=== PATIENT | male | born 1965 | race Caucasian/White ===

== ENCOUNTER 2017-02-12 19:33 | Emergency (ER) | payer SELFPAY ==
[~2017-02-12] VITALS: Ht 182.9 cm; Wt 92.0 kg
[~2017-02-12 19:33] MED LIST: BACT800T5 PO; CEPH500 PO
[2017-02-12 19:35] VITALS: BP 113/56; PULSE 78; RESP 15; TEMP 99.6; O2SAT 98
--- NOTE | 2017-02-12 20:09 | PD ---
Physical Exam Date Seen by Provider: Feb 12, 2017 Time Seen by Provider: 20:05 Narrative 51-year-old male presents to emergency department with five-day history of upper respiratory symptoms including sinus pressure, purulent nasal drainage, bilateral ear pain with blood from the ears. Patient denies dental involvement. Patient recently was released from the [facility] 5 months ago. He states he is currently homeless. He is had this issue in the past treated with IV antibiotics. Patient has been taking some ibuprofen without much improvement. Pain is currently 9/10. He has no known drug allergies. Patient states he recently contracted and was treated for hepatitis B and hepatitis C. Vital signs are stable. Patient is awaiting medical bed placement. Data Data Last Documented VS Vital Signs Date Time Temp Pulse Resp B/P (MAP) Pulse Ox O2 Delivery O2 Flow Rate FiO2 02/12/17 19:35 99.6 78 15 113/56 (75) 98 Room Air [facility] Medical Record Reviewed: Yes Supervised Visit with POP: Yes Condition: Stable Juan Carlos Bai Feb 12, 2017 20:09
[2017-02-12] MEDS ORDERED: SODIUM CHLOR 0.9% 1000 ML INJ 1,000 ML IV ONE (21:00)
[2017-02-12] MEDS ORDERED: KETOROLAC TROMETHAMINE 30 MG/ML (IVP) VIAL IV PUSH ONE (21:00)
--- NOTE | 2017-02-12 22:12 | PD ---
HPI Chief Complaint: ENT Complaint Time Seen by Provider: 20:48 Travel History International Travel<30 days: No Contact w/Intl Traveler<30days: No Traveled to known affect area: No History of Present Illness HPI Patient is a 51 year old male who comes in because he believes he has an abscess in his nose. He says he has a lot of pain and swelling just below his nose and a lot of drainage. He says he has been taking Ibuprofen, last took it 48 hrs ago, and this is not helping. He says he put Qtips in his ears and they started bleeding. He says he has felt like he has had a fever. He is currently homeless and was just released from residential a few weeks ago. [facility] Past Medical History Anxiety: Yes Depression: Yes Cardiovascular Problems: No Diminished Hearing: No Gastrointestinal Disorders: No Genitourinary: No Hepatitis: Yes Herniated Disk: Yes Musculoskeletal: Yes (BULGING DISCS IN BACK) Neurologic: No Psychiatric: No Reproductive: No Respiratory: No Integumentary: Yes (PREVIOUS MRSA INFECTIONS) Immunizations Current: No Past Surgical History Tonsillectomy: Yes Other Surgery: Yes (Left ankle, R and left thumb) Social History Alcohol Use: Yes (RARE) Tobacco Use: No Substance Use: Yes (COCCAINE USER, IV DRUG USER, METH RARELY) Allergies-Medications (Allergen,Severity, Reaction): Coded Allergies: No Known Allergies (Verified , 02/12/17) Reported Meds & Prescriptions Reported Meds & Active Scripts Active No Active Prescriptions or Reported Medications Review of Systems Except as stated in HPI: all other systems reviewed are Neg General / Constitutional: Positive: Fever, Chills Eyes: No: Blurred Vision HENT: Positive: Rhinorrhea, Congestion, Ear Discharge Cardiovascular: No: Chest Pain or Discomfort Respiratory: No: Shortness of Breath Gastrointestinal: No: Nausea, Vomiting Musculoskeletal: No: Myalgias, Edema Skin: No Rash, No Change in Pigmentation Neurologic: No: Weakness, Dizziness Physical Exam Narrative GENERAL: Awake and alert, in no acute distress. SKIN: Focused skin assessment warm/dry. HEAD: Atraumatic. Normocephalic. EYES: Pupils equal and round. No scleral icterus. EOMI ENT: No nasal bleeding or discharge. Mucous membranes pink and moist. Erythema around the nostrils, no defined abscess or area of fluctuance. No septal hematoma. Area of irritation and dried blood in the left ear canal. Both TMs without erythema, both intact. NECK: Trachea midline. No JVD. CARDIOVASCULAR: Regular rate and rhythm. No murmur appreciated. RESPIRATORY: No accessory muscle use. Clear to auscultation. Breath sounds equal bilaterally. MUSCULOSKELETAL: No obvious deformities. No clubbing. No cyanosis. No edema. NEUROLOGICAL: Awake and alert. No obvious cranial nerve deficits. Motor grossly within normal limits. Normal speech. PSYCHIATRIC: Appropriate mood and affect; insight and judgment normal. Data Data Last Documented VS Vital Signs Date Time Temp Pulse Resp B/P (MAP) Pulse Ox O2 Delivery O2 Flow Rate FiO2 02/12/17 22:45 16 02/12/17 19:35 99.6 78 113/56 (75) 98 Room Air Orders Orders Iv Access Insert/Monitor (02/12/17 20:56) Complete Blood Count With Diff (02/12/17 20:56) Comprehensive Metabolic Panel (02/12/17 20:56) Ct Facial Bones W Iv Contrast (02/12/17 ) Sodium Chlor 0.9% 1000 Ml Inj (Ns 1000 M (02/12/17 21:00) Ketorolac Inj (Toradol Inj) (02/12/17 21:00) Iohexol 350 Inj (Omnipaque 350 Inj) (02/12/17 22:37) Clindamycin Inj (Cleocin Inj) (02/12/17 23:30) Asp:No Reaction To [place]av/Vanc (Asp Crit (02/12/17 23:30) Asp: Does Not Meet Inpt Admit (Asp Crit: (02/12/17 23:30) Asp: Iv Antibiotics Admit Only (Asp Crit (02/12/17 23:30) Asp: Location Of Dalbav Admin (Asp Crit: (02/12/17 23:30) [facility] Information ([facility] (02/12/17 23:30) Dalbavancin Inj (Dalvance Inj) (02/12/17 23:25) Labs Laboratory Tests Test 02/12/17 21:05 White Blood Count 8.5 TH/MM3 Red Blood Count 4.17 MIL/MM3 Hemoglobin 14.1 GM/DL Hematocrit 40.5 % Mean Corpuscular Volume 97.1 FL Mean Corpuscular Hemoglobin 33.8 PG Mean Corpuscular Hemoglobin Concent 34.8 % Red Cell Distribution Width 12.6 % Platelet Count 164 TH/MM3 Mean Platelet Volume 9.1 FL Neutrophils (%) (Auto) 61.4 % Lymphocytes (%) (Auto) 24.4 % Monocytes (%) (Auto) 11.5 % Eosinophils (%) (Auto) 2.3 % Basophils (%) (Auto) 0.4 % Neutrophils # (Auto) 5.2 TH/MM3 Lymphocytes # (Auto) 2.1 TH/MM3 Monocytes # (Auto) 1.0 TH/MM3 Eosinophils # (Auto) 0.2 TH/MM3 Basophils # (Auto) 0.0 TH/MM3 CBC Comment DIFF FINAL Differential Comment Blood Urea Nitrogen 9 MG/DL Creatinine 0.86 MG/DL Random Glucose 84 MG/DL Total Protein 7.8 GM/DL Albumin 3.6 GM/DL Calcium Level 9.0 MG/DL Alkaline Phosphatase 66 U/L Aspartate Amino Transf (AST/SGOT) 18 U/L Alanine Aminotransferase (ALT/SGPT) 18 U/L Total Bilirubin 1.3 MG/DL Sodium Level 137 MEQ/L Potassium Level 4.0 MEQ/L Chloride Level 102 MEQ/L Carbon Dioxide Level 28.6 MEQ/L Anion Gap 6 MEQ/L Estimat Glomerular Filtration Rate 94 ML/MIN MDM Medical Decision Making Medical Screen Exam Complete: Yes Emergency Medical Condition: Yes Medical Record Reviewed: Yes Differential Diagnosis URI vs facial abscess vs sinusitis Narrative Course Patient is a 51 year old male who comes in complaining of an abscess to his nose. There is an area of redness just under the nose, without clear defined abscess. IV established, labs sent. Labs show no acute abnormalities. CT facial bones shows evidence of small abscess and surrounding cellulitis. Patient has no evidence of sepsis. Attempt made to needle aspirate the abscess without any fluid drainage. Patient given Dalvance. Advised to return in 2 days for recheck. Diagnosis Primary Impression: Facial cellulitis Additional Impression: Facial abscess Patient Instructions: Cellulitis (ED), General Instructions Additional Instructions: You were given long-acting antibiotics today. Return in 2 days for a wound check. Return any time for any worsening symptoms. Scripts No Active Prescriptions or Reported Meds Disposition: 01 DISCHARGE HOME Condition: Stable Amina Blue MD Feb 12, 2017 22:12
[2017-02-12 22:15] LABS: AUTOMATED NEUTROPHIL # 5.2 TH/MM3 (1.8-7.7); BASOPHIL % 0.4 % (0.0-2.0); EOSINOPHIL # 0.2 TH/MM3 (0-0.4); EOSINOPHIL % 2.3 % (0.0-4.0); HEMATOCRIT 40.5 % (39.0-51.0); HEMO FLAGS DIFF FINAL; LYMPH % 24.4 % (9.0-44.0); LYMPHOCYTE # 2.1 TH/MM3 (1.0-4.8); MEAN CELL VOLUME 97.1 FL (80.0-100.0); MEAN CORPUSCULAR HEMOGLOBIN 33.8 PG (27.0-34.0); MEAN CORPUSCULAR HGB CONC 34.8 % (32.0-36.0); MONO % 11.5 % (0.0-8.0); NEUT % 61.4 % (16.0-70.0); PLATELET COUNT 164 TH/MM3 (150-450); RED BLOOD COUNT 4.17 MIL/MM3 (4.50-5.90); RED CELL DISTRIBUTION WIDTH 12.6 % (11.6-17.2); WHITE BLOOD COUNT 8.5 TH/MM3 (4.0-11.0)
[2017-02-12 22:24] LABS: ALT (GPT) 18 U/L (12-78); ANION GAP 6 MEQ/L (5-15); AST (GOT) 18 U/L (15-37); BICARBONATE 28.6 MEQ/L (21.0-32.0); BLOOD UREA NITROGEN 9 MG/DL (7-18); CHLORIDE 102 MEQ/L (98-107); GLOMERULAR FILTRATION RATE 94 ML/MIN (>89); SODIUM (NA) 137 MEQ/L (136-145)
[2017-02-12 22:26] LABS: ALKALINE PHOSPHATASE 66 U/L (45-117); TOTAL BILIRUBIN ADULT 1.3 MG/DL (0.2-1.0)
[2017-02-12] MEDS ORDERED: IOHEXOL 350 MG/ML 10 ML VIAL (for RAD DIAG) IVCONTRAST ONE (22:37)
[2017-02-12 22:45] VITALS: RESP 16
--- NOTE | 2017-02-12 22:54 | RADRPT ---
EXAM DATE/TIME: 02/12/2017 22:34 [place] COMPARISON: No previous studies available for comparison. INDICATIONS : Facial swelling with drainage from nose, pus/blood. IV CONTRAST: 72 cc Omnipaque 350 (iohexol) IV RADIATION DOSE: 37.24 CTDIvol (mGy) MEDICAL HISTORY : Hepatitis. Substance abuse. SURGICAL HISTORY : None. ENCOUNTER: Initial ACUITY: 1 day PAIN SCALE: 9/10 LOCATION: Bilateral facial TECHNIQUE: Volumetric scanning of the facial bones was performed. Using automated exposure control and adjustme nt of the mA and/or kV according to patient size, radiation dose was kept as low as reasonably achiev able to obtain optimal diagnostic quality images. DICOM format image data is available electronicall y for review and comparison. FINDINGS: There is a broad area of soft tissue swelling beneath the nose. At the midline beneath the nose is a 13 x 12 mm fluid collection compatible of a small abscess. This is approximately 6 mm beneath the ski n. No fracture or acute bone destruction demonstrated. No periosteal reaction seen. CONCLUSION: Small subcutaneous abscess of the upper philtrum within a broad area of surrounding cellulitis. Nothi ng convincing for osteomyelitis. Aditya Joseph MD on February 12, 2017 at 22:48 Board Certified Radiologist. This report was verified electronically.
[2017-02-12] MEDS ORDERED: DALBAVANCIN INJ 1,500 MG in DEXTROSE 5% IN WATE 500 ML INJ 500 ML IV STA ×2 (23:25)
[2017-02-12] MEDS ORDERED: ASP: No known hypersensitivity to Vanco, Telavancin, Dalbavancin OTHER ONE (23:30)
[2017-02-12] MEDS ORDERED: CLINDAMYCIN INJ 600 MG in SODIUM CHLORIDE 0.9% INJ 100 ML IV ONE (23:30)
[2017-02-12] MEDS ORDERED: ASP: Does not meet inpatient admission criteria OTHER ONE (23:30)
[2017-02-12] MEDS ORDERED: MISCELLANEOUS PHARMACY INFORMATION XX ONE (23:30)
[2017-02-12] MEDS ORDERED: ASP: Location of Dalbavancin administration OTHER ONE (23:30)
[2017-02-12] MEDS ORDERED: ASP: Only reason for admit - IV antibiotics OTHER ONE (23:30)
== END 2017-02-13 02:30 | disposition home or self-care (01) ==
LOC: NEPD 19:33
DX: L03.211 Cellulitis of face (principal); L02.01 Cutaneous abscess of face; Z86.59 Personal history of other mental and behavioral disorders; Z87.39 Personal history of other diseases of the musculoskeletal system and connective tissue; Z86.14 Personal history of Methicillin resistant Staphylococcus aureus infection
CPT/HCPCS: 70487; 80053; 85025; 96361; 96365; 96366; 96375; 99285; J0875; J1885; J7030; J7060; Q9967

== ENCOUNTER 2017-02-15 02:21 | Inpatient (IN) | payer SELFPAY ==
[~2017-02-15] VITALS: Ht 182.9 cm; Wt 97.5 kg
[2017-02-15 02:25] VITALS: BP 124/81; PULSE 65; RESP 15; TEMP 98.7; O2SAT 96
--- NOTE | 2017-02-15 03:10 | PD ---
HPI Chief Complaint: Skin Problem Time Seen by Provider: 02:43 Travel History International Travel<30 days: No Contact w/Intl Traveler<30days: No Traveled to known affect area: No History of Present Illness HPI The patient is a 51-year-old male who presents to the emergency department for reevaluation of a facial abscess. The patient states he was seen in the emergency department 2 days ago where he was diagnosed with a facial abscess via CT and was given one dose of Dalvance. The patient was advised to return in 48 hours for reevaluation. The patient states he abscess is not improved, is worsening. He notes considerable pain and swelling under the nose which is extremely tender to palpation. He is unsure if he has had any fever. The patient was recently released from shelter, does have a recent diagnosis of hepatitis B and hepatitis C. He does not take any medications on a daily basis. He denies any recent illicit drug use or alcohol use. The patient is currently homeless. Symptoms are moderate without any alleviating or exacerbating factors. PFSH Past Medical History Anxiety: Yes Depression: Yes Cardiovascular Problems: No Diminished Hearing: No Gastrointestinal Disorders: No Genitourinary: No Hepatitis: Yes (B&C) Herniated Disk: Yes Musculoskeletal: Yes (BULGING DISCS IN BACK) Neurologic: No Psychiatric: No Reproductive: No Respiratory: No Integumentary: Yes (PREVIOUS MRSA INFECTIONS) Immunizations Current: No Past Surgical History Tonsillectomy: Yes Other Surgery: Yes (Left ankle, R and left thumb) Social History Alcohol Use: Yes (RARE) Tobacco Use: No Substance Use: No (HX COCCAINE USER, IV DRUG USER, METH RARELY) Allergies-Medications (Allergen,Severity, Reaction): Coded Allergies: No Known Allergies (Verified , 02/15/17) Reported Meds & Prescriptions Reported Meds & Active Scripts Active No Active Prescriptions or Reported Medications Review of Systems Except as stated in HPI: all other systems reviewed are Neg General / Constitutional: No: Fever HENT: Positive: Other (as noted in history present illness) Gastrointestinal: Positive: Other (recent diagnosis of hepatitis B and hepatitis C), No: Nausea, Vomiting Musculoskeletal: No: Weakness Skin: Positive Other (as noted in history present illness) Neurologic: No: Dizziness Physical Exam Narrative GENERAL: Awake, alert, pleasant 51-year-old male who appears his stated age and is in no acute respiratory distress. SKIN: Focused skin assessment warm/dry. HEAD: Atraumatic. Normocephalic. EYES: Pupils equal and round. No scleral icterus. No injection or drainage. ENT: Patient has erythema and significant tenderness over the septal area of the nose and philtrum. Poor dentition noted. NECK: Trachea midline. No JVD. CARDIOVASCULAR: Regular rate and rhythm. No murmur appreciated. RESPIRATORY: No accessory muscle use. Clear to auscultation. Breath sounds equal bilaterally. GASTROINTESTINAL: Abdomen soft, non-tender, nondistended. MUSCULOSKELETAL: No obvious deformities. No clubbing. No cyanosis. No edema. NEUROLOGICAL: Awake and alert. No obvious cranial nerve deficits. Motor grossly within normal limits. Normal speech. PSYCHIATRIC: Appropriate mood and affect; insight and judgment normal. Data Data Last Documented VS Vital Signs Date Time Temp Pulse Resp B/P (MAP) Pulse Ox O2 Delivery O2 Flow Rate FiO2 02/15/17 04:31 58 18 120/76 (91) 97 Room Air 02/15/17 02:25 98.7 Orders Orders Complete Blood Count With Diff (02/15/17 03:03) Comprehensive Metabolic Panel (02/15/17 03:03) Lactic Acid (02/15/17 03:03) Blood Culture (02/15/17 03:03) Morphine Inj (Morphine Inj) (02/15/17 03:15) Ondansetron Inj (Zofran Inj) (02/15/17 03:15) Sodium Chlor 0.9% 1000 Ml Inj (Ns 1000 M (02/15/17 03:15) Clindamycin Inj (Cleocin Inj) (02/15/17 03:15) Admit Order (Ed Use Only) (02/15/17 04:40) Labs Laboratory Tests Test 02/15/17 03:23 White Blood Count 7.4 TH/MM3 Red Blood Count 4.01 MIL/MM3 Hemoglobin 13.2 GM/DL Hematocrit 38.2 % Mean Corpuscular Volume 95.4 FL Mean Corpuscular Hemoglobin 32.8 PG Mean Corpuscular Hemoglobin Concent 34.4 % Red Cell Distribution Width 12.3 % Platelet Count 189 TH/MM3 Mean Platelet Volume 7.8 FL Neutrophils (%) (Auto) 55.2 % Lymphocytes (%) (Auto) 35.0 % Monocytes (%) (Auto) 7.4 % Eosinophils (%) (Auto) 1.8 % Basophils (%) (Auto) 0.6 % Neutrophils # (Auto) 4.1 TH/MM3 Lymphocytes # (Auto) 2.6 TH/MM3 Monocytes # (Auto) 0.5 TH/MM3 Eosinophils # (Auto) 0.1 TH/MM3 Basophils # (Auto) 0.0 TH/MM3 CBC Comment DIFF FINAL Differential Comment Blood Urea Nitrogen 7 MG/DL Creatinine 0.87 MG/DL Random Glucose 84 MG/DL Total Protein 7.7 GM/DL Albumin 3.4 GM/DL Calcium Level 8.5 MG/DL Alkaline Phosphatase 62 U/L Aspartate Amino Transf (AST/SGOT) 12 U/L Alanine Aminotransferase (ALT/SGPT) 15 U/L Total Bilirubin 0.5 MG/DL Sodium Level 139 MEQ/L Potassium Level 3.6 MEQ/L Chloride Level 105 MEQ/L Carbon Dioxide Level 26.3 MEQ/L Anion Gap 8 MEQ/L Estimat Glomerular Filtration Rate 93 ML/MIN Lactic Acid Level 1.3 mmol/L MDM Medical Decision Making Medical Screen Exam Complete: Yes Emergency Medical Condition: Yes Medical Record Reviewed: Yes Interpretation(s) Laboratory Tests Test 02/15/17 03:23 White Blood Count 7.4 TH/MM3 Red Blood Count 4.01 MIL/MM3 Hemoglobin 13.2 GM/DL Hematocrit 38.2 % Mean Corpuscular Volume 95.4 FL Mean Corpuscular Hemoglobin 32.8 PG Mean Corpuscular Hemoglobin Concent 34.4 % Red Cell Distribution Width 12.3 % Platelet Count 189 TH/MM3 Mean Platelet Volume 7.8 FL Neutrophils (%) (Auto) 55.2 % Lymphocytes (%) (Auto) 35.0 % Monocytes (%) (Auto) 7.4 % Eosinophils (%) (Auto) 1.8 % Basophils (%) (Auto) 0.6 % Neutrophils # (Auto) 4.1 TH/MM3 Lymphocytes # (Auto) 2.6 TH/MM3 Monocytes # (Auto) 0.5 TH/MM3 Eosinophils # (Auto) 0.1 TH/MM3 Basophils # (Auto) 0.0 TH/MM3 CBC Comment DIFF FINAL Differential Comment Blood Urea Nitrogen 7 MG/DL Creatinine 0.87 MG/DL Random Glucose 84 MG/DL Total Protein 7.7 GM/DL Albumin 3.4 GM/DL Calcium Level 8.5 MG/DL Alkaline Phosphatase 62 U/L Aspartate Amino Transf (AST/SGOT) 12 U/L Alanine Aminotransferase (ALT/SGPT) 15 U/L Total Bilirubin 0.5 MG/DL Sodium Level 139 MEQ/L Potassium Level 3.6 MEQ/L Chloride Level 105 MEQ/L Carbon Dioxide Level 26.3 MEQ/L Anion Gap 8 MEQ/L Estimat Glomerular Filtration Rate 93 ML/MIN Lactic Acid Level 1.3 mmol/L Differential Diagnosis Differential diagnosis includes facial abscess, cellulitis, failed outpatient therapy, dental abscess. Narrative Course IV was established, labs are drawn and sent, and the patient was placed on cardiac telemetry monitoring and continuous pulse oximetry monitoring. I reviewed the EMR, the patient did have a CT of the facial bones 2 days ago which revealed a facial abscess in the affected area. The patient was administered a long-acting antibiotic and advised to return in 48 hours. The patient states his symptoms are worsening, not improving, and there is concern for intracranial infection if this spreads. Therefore, the patient was administered clindamycin, morphine, Zofran, and IV fluids. He will be a 23 hour observation to the medical service with consultation [facility] for possible drainage. The on-call medical service was paged for 23 hour observation. Physician Communication Physician Communication The on-call medical service was paged for admission. I discussed the patient Dr. Vásquez who agrees with 23 hour observation. Diagnosis Primary Impression: Facial abscess Admitting Information Admitting Physician Requests: Observation Scripts No Active Prescriptions or Reported Meds Condition: Stable Suman Alcazar MD Feb 15, 2017 03:10
[2017-02-15] MEDS ORDERED: ONDANSETRON HCL 4 MG/2 ML VIAL IV PUSH ONE (03:15)
[2017-02-15] MEDS ORDERED: CLINDAMYCIN INJ 600 MG in SODIUM CHLORIDE 0.9% INJ 100 ML IV ONE (03:15)
[2017-02-15] MEDS ORDERED: MORPHINE SULFATE 4 MG/ML INJ IV PUSH ONE (03:15)
[2017-02-15] MEDS ORDERED: SODIUM CHLOR 0.9% 1000 ML INJ 1,000 ML IV ONE (03:15)
[2017-02-15 03:38] LABS: AUTOMATED NEUTROPHIL # 4.1 TH/MM3 (1.8-7.7); BASOPHIL % 0.6 % (0.0-2.0); EOSINOPHIL # 0.1 TH/MM3 (0-0.4); EOSINOPHIL % 1.8 % (0.0-4.0); HEMATOCRIT 38.2 % (39.0-51.0); HEMO FLAGS DIFF FINAL; LYMPHOCYTE # 2.6 TH/MM3 (1.0-4.8); MEAN CELL VOLUME 95.4 FL (80.0-100.0); MEAN CORPUSCULAR HEMOGLOBIN 32.8 PG (27.0-34.0); MEAN CORPUSCULAR HGB CONC 34.4 % (32.0-36.0); MONO % 7.4 % (0.0-8.0); NEUT % 55.2 % (16.0-70.0); PLATELET COUNT 189 TH/MM3 (150-450); RED BLOOD COUNT 4.01 MIL/MM3 (4.50-5.90); RED CELL DISTRIBUTION WIDTH 12.3 % (11.6-17.2); WHITE BLOOD COUNT 7.4 TH/MM3 (4.0-11.0)
[2017-02-15 04:00] LABS: ALT (GPT) 15 U/L (12-78); ANION GAP 8 MEQ/L (5-15); AST (GOT) 12 U/L (15-37); BICARBONATE 26.3 MEQ/L (21.0-32.0); BLOOD UREA NITROGEN 7 MG/DL (7-18); CHLORIDE 105 MEQ/L (98-107); GLOMERULAR FILTRATION RATE 93 ML/MIN (>89); POTASSIUM 3.6 MEQ/L (3.5-5.1); SODIUM (NA) 139 MEQ/L (136-145)
[2017-02-15 04:02] LABS: ALKALINE PHOSPHATASE 62 U/L (45-117); TOTAL BILIRUBIN ADULT 0.5 MG/DL (0.2-1.0)
[2017-02-15 04:31] VITALS: BP 120/76; PULSE 58; RESP 18; O2SAT 97
--- NOTE | 2017-02-15 05:00 | HHI.HP ---
[facility] Service Family Medicine Primary Care Physician No Primary Care Physician Admission Diagnosis facial abscess failed outpatient therapy Diagnoses: International Travel<30 Days: No Contact w/Intl Traveler<30days: No Known Affected Area: No History of Present Illness Patient is a 51-year-old male that presents to the [place] ED with a chief complaint of a facial abscess that failed outpatient therapy. Patient was last seen in the ED 2 days ago where the facial abscess was confirmed by CT and he received one dose of Dalvance and was told to return to the ED in 2 days. Patient states that the pain has not improved and is actually worse than previous. He describes the pain as 7 out of 10. The abscess has been draining a lot of purulent yellow-valente material with some blood. He has not had any fevers within the past 2 days. (Mami Vásquez MD R2) Review of Systems Constitutional: COMPLAINS OF: Chills, DENIES: Fever Eyes: COMPLAINS OF: Vision loss, DENIES: Blurred vision Ears, nose, mouth, throat: COMPLAINS OF: Hearing loss (left ear hearing loss, no hearing on the right), Throat pain, Sinus Pain (sinus drainage ) Respiratory: COMPLAINS OF: Cough, Shortness of breath (due to deviated septum) Cardiovascular: DENIES: Chest pain, Syncope Gastrointestinal: COMPLAINS OF: Nausea, DENIES: Abdominal pain, Vomiting Genitourinary: DENIES: Urinary frequency, Dysuria Musculoskeletal: DENIES: Muscle aches Integumentary: DENIES: Pruritus, Rash (no rashes ) Neurologic: DENIES: Headache, Paresthesias Psychiatric: COMPLAINS OF: Anxiety, DENIES: Confusion, Depression, Suicidal Ideation, Homicidal Ideation (Mami Vásquez MD R2) Past Family Social History Past Medical History History of TB Hep B & C Herniated disc Past Surgical History Tonsillectomy in 1992 Bilateral thumb surgery Left ankle surgery Right ear surgery Reported Medications Reported Meds & Active Scripts Active No Active Prescriptions or Reported Medications (Mami Vásquez MD R2) Allergies: Coded Allergies: No Known Allergies (Verified , 02/15/17) Family History Dad smoked a lot - throat cancer Social History Denies current smoking Denies chewing tobacco Infrequent alcohol Former IV drug user, last used cocaine 7 years ago. Also used amphetamines in the past (Mami Vásquez MD R2) Physical Exam Vital Signs Vital Signs Date Time Temp Pulse Resp B/P (MAP) Pulse Ox O2 Delivery O2 Flow Rate FiO2 02/15/17 04:31 58 18 120/76 (91) 97 Room Air 02/15/17 02:25 98.7 65 15 124/81 (95) 96 Room Air Physical Exam GENERAL: This is a well-developed patient, in no apparent distress. SKIN: Multiple insect bites on BLE HEAD: Atraumatic. Normocephalic. No temporal or scalp tenderness. EYES: Pupils equal round and reactive. Extraocular motions intact. No scleral icterus. No injection or drainage. ENT: 5mm abscess within the internal medial lower border of the right nostril with significant erythema over the nasal septum and philtrum. Poor dentition. Throat without erythema, tonsillar hypertrophy or exudate. Uvula midline. Airway patent. NECK: Trachea midline. No JVD or lymphadenopathy. Supple, nontender, no meningeal signs. CARDIOVASCULAR: Bradycardic rate and rhythm without murmurs, gallops, or rubs. 2 + pedal pulses with good capillary refill RESPIRATORY: Clear to auscultation. Breath sounds equal bilaterally. No wheezes , rales, or rhonchi. GASTROINTESTINAL: Abdomen soft, non-tender, nondistended. No hepato-splenomegaly , or palpable masses. No guarding. MUSCULOSKELETAL: Extremities without clubbing, cyanosis, or edema. Scabbed blisters underneath his feet from constant walking NEUROLOGICAL: Awake and alert. Cranial nerves II through XII intact. Motor and sensory grossly within normal limits. Five out of 5 muscle strength in all muscle groups. Normal speech. Laboratory Laboratory Tests Test 02/15/17 03:23 White Blood Count 7.4 Red Blood Count 4.01 Hemoglobin 13.2 Hematocrit 38.2 Mean Corpuscular Volume 95.4 Mean Corpuscular Hemoglobin 32.8 Mean Corpuscular Hemoglobin Concent 34.4 Red Cell Distribution Width 12.3 Platelet Count 189 Mean Platelet Volume 7.8 Neutrophils (%) (Auto) 55.2 Lymphocytes (%) (Auto) 35.0 Monocytes (%) (Auto) 7.4 Eosinophils (%) (Auto) 1.8 Basophils (%) (Auto) 0.6 Neutrophils # (Auto) 4.1 Lymphocytes # (Auto) 2.6 Monocytes # (Auto) 0.5 Eosinophils # (Auto) 0.1 Basophils # (Auto) 0.0 CBC Comment DIFF FINAL Differential Comment Blood Urea Nitrogen 7 Creatinine 0.87 Random Glucose 84 Total Protein 7.7 Albumin 3.4 Calcium Level 8.5 Alkaline Phosphatase 62 Aspartate Amino Transf (AST/SGOT) 12 Alanine Aminotransferase (ALT/SGPT) 15 Total Bilirubin 0.5 Sodium Level 139 Potassium Level 3.6 Chloride Level 105 Carbon Dioxide Level 26.3 Anion Gap 8 Estimat Glomerular Filtration Rate 93 Lactic Acid Level 1.3 Date/Time Source Procedure Growth Status 02/15/17 03:25 Blood Peripheral Aerobic Blood Culture Pending Received 02/15/17 03:25 Blood Peripheral Anaerobic Blood Culture Pending Received (Mami Vásquez MD R2) Result Diagram: 02/15/1732202/15/17322 Course Patient received one dose of clindamycin IV in the ED (Mami Vásquez MD R2) Caprinelidia VTE Risk Assessment Caprinelidia VTE Risk Assessment: No/Low Risk (score <= 1) (Mami Vásquez MD R2) Assessment and Plan Assessment and Plan 51 y/o male presents with skin abscess in his right nostril after failing outpatient therapy. He will be admitted to the hospital for management with IV antibiotics. Oral maxillofacial surgery has been consulted for possible drainage. Code Status DNR Discussed Condition With Seen and examined with Dr. Arroyo. Will discuss with Dr. Pryor (Maim Vásquez MD R2) Attending Attestation The patient has been seen and examined. The chart and all resident notes have been reviewed. I agree that inpatient care is appropriate and that a two midnight stay is expected for the reasons documented in the resident history and physical. I have discussed this with the resident and certify the resident s order for inpatient admission. (Diamond Pryor MD) Problem List: (1) Facial abscess ICD Codes: L02.01 - Cutaneous abscess of face Status: Acute Plan: -CT facial bones with IV contrast on 02/12/17 showed a 13 x 12 mm fluid collection compatible with a small abscess, approximately 6 mm beneath the skin. No fracture or acute bone destruction demonstrated, no periosteal reaction seen -Failed outpatient therapy with Dalvance -Does not meet sepsis criteria on admission but will require IV antibiotics for facial abscess -Patient has a history of MRSA cellulitis in 2016 that was susceptible to vancomycin, clindamycin, and Bactrim -Patient received a dose of clindamycin 600 mg IV in the ED -Will give vancomycin 1500 mg IV loading dose, pharmacy to dose -Due to perioral location of the abscess, will start Unasyn 1500 mg IV every 6 hours -Wound swab for culture pending -Infectious diseases consulted to assist with management -OMF consulted in the ED to assist with management (2) Hepatitis B ICD Codes: B19.10 - Unspecified viral hepatitis B without hepatic coma Status: Chronic Plan: -Chronic history of Hep B -Will check viral load (3) Hepatitis C ICD Codes: B19.20 - Unspecified viral hepatitis C without hepatic coma Status: Chronic Plan: -Chronic history of Hep C -Will check viral load (4) FEN/DVT PPX/GI PPX/Nursing Orders Plan: Fluids: NS @ 140 mls/hr IV Electrolytes: Will monitor and replace as needed Nutrition: NPO for possible procedure, Regular adult diet after DVT Prophylaxis: Bilateral SCDs, Holding pharmacological prophylaxis until 24hrs after procedure GI Prophylaxis: None currently Constipation prophylaxis: Pericolace 1 tab PO BID PRN Medications Tylenol 500 mg by mouth every 6 hours when necessary pain 1-10 or temperature greater than 100.4F [place] 325-5 mg 1 tab by mouth every 6 hours when necessary pain 1-5 [place] 325-10 mg 1 tab by mouth every 6 hours when necessary pain 6-10 Zofran 4 mg IV push every 6 hours when necessary nausea vomiting Morphine 4 mg IV push every 3 hours when necessary breakthrough pain Toradol 30 mg IV every 6 hours when necessary for breakthrough pain Vasotec 1.25 mg IV PRN SBP greater than 180 or DBP greater than 100 Ambien 5 mg PO HS when necessary insomnia -Vitals Q4h -Monitor I's and O's -Activity OOB ad kelly -Case management consult to assist with discharge disposition Disposition: Pending improvement in facial cellulitis (Mami Vásquez MD R2) Problem Qualifiers (1) Hepatitis B: Qualified Codes: B18.1 - Chronic viral hepatitis B without delta-agent (2) Hepatitis C: Qualified Codes: B18.2 - Chronic viral hepatitis C Mami Vásquez MD R2 Feb 15, 2017 05:00 Diamond Pryor MD Feb 15, 2017 18:21
[2017-02-15] MEDS: SODIUM CHLOR 0.9% 1000 ML INJ 1,000 ML IV SCH ×3 (06:29→19:40)
[2017-02-15] MEDS ORDERED: Vancomycin Consult Pharmacy 1 EA OTHER SCH (06:30)
[2017-02-15] MEDS ORDERED: ZOLPIDEM TARTRATE 5 MG TAB PO PRN (06:30)
[2017-02-15] MEDS ORDERED: ACETAMINOPHEN/HYDROcodone 325 MG/7.5 MG TAB PO PRN (06:30)
[2017-02-15] MEDS ORDERED: ONDANSETRON HCL 4 MG/2 ML VIAL IV PRN (06:30)
[2017-02-15] MEDS ORDERED: ACETAMINOPHEN/HYDROcodone 325 MG/5 MG TAB PO PRN (06:30)
[2017-02-15] MEDS ORDERED: ENALAPRILAT 1.25 MG/ML VIAL IV PUSH PRN (06:30)
[2017-02-15] MEDS ORDERED: ACETAMINOPHEN 500 MG CPLT PO PRN ×2 (06:30→07:30)
[2017-02-15] MEDS ORDERED: DOCUSATE SODIUM 50 MG/SENNA 8.6 MG TAB PO PRN (06:30)
[2017-02-15] MEDS ORDERED: MORPHINE SULFATE 4 MG/ML INJ IV PUSH PRN (06:30)
[2017-02-15] MEDS ORDERED: ENOXAPARIN SODIUM 40 MG/0.4 ML SYRINGE SQ SCH (06:30)
[2017-02-15] MEDS ORDERED: VANCOMYCIN INJ 1,500 MG in SODIUM CHLORID 0.9% 500 ML INJ 500 ML IV ONE (07:30)
[2017-02-15] MEDS ORDERED: LIDOCAINE 2%/EPINEPHrine 1:100,000 30ML MDV INFIL ONE (07:45)
[2017-02-15 07:52] LABS: MAGNESIUM 2.1 MG/DL (1.5-2.5)
[2017-02-15 08:00] VITALS: BP 108/68; PULSE 50; RESP 14; TEMP 96.9; O2SAT 97
[2017-02-15] MEDS ORDERED: LIDOCAINE 2%/EPINEPHrine 1:100,000 20ML MDV INFIL ONE (08:00)
--- NOTE | 2017-02-15 08:35 | HHI.FPPN ---
Subjective Subjective Patient seen and examined with the resident team. Case reviewed and discussed Please refer to resident H&P for further details regarding HPI ROS, PMH SurgHx, Fh and SocHx In summary, patient is a 51yo homeless male presenting for his 2 day follow-up of facial abscess with worsening drainage and pain. He was seen in the ED 2 days prior to admission and given Dalvance for facial cellulitis with abscess Patient is seen in his hospital room s/p I&D of facial abscess with improvement Hospital Objective Objective Laboratory Tests - Abnormals Test 02/15/17 03:23 Red Blood Count 4.01 MIL/MM3 Hematocrit 38.2 % Aspartate Amino Transf (AST/SGOT) 12 U/L Vital Signs 02/15/17 02/15/17 02:25 04:31 Temp 98.7 Pulse 65 58 Resp 15 18 B/P (MAP) 124/81 (95) 120/76 (91) Pulse Ox 96 97 O2 Delivery Room Air Room Air Physical exam GENERAL: well appearing male resting in bed, NAD SKIN: Warm and dry. Mild erythema over philtrum HEAD: Normocephalic. edema at base of nose s/p drainage EYES: No scleral icterus. No injection or drainage. NECK: Supple, trachea midline. No JVD or lymphadenopathy. CARDIOVASCULAR: Regular rate and rhythm without murmurs, gallops, or rubs. RESPIRATORY: Breath sounds equal bilaterally. No accessory muscle use. GASTROINTESTINAL: Abdomen soft, non-tender, nondistended. MUSCULOSKELETAL: No cyanosis, or edema. NO calf tenderness, chronic wound R plantar foot BACK: Nontender without obvious deformity. No CVA tenderness. NEURO: Awake and alert. Motor and sensory intact and equal bilaterally Assessment Assessment 51yoM admitted with: Facial cellulitis with abscess Hep B, C Hx TB Incarceration Hx PSA PLAN PLAN s/p drainage, await cultures Empiric antibiotic therapy ID consult, appreciate input OMF consulted, appreciate recs Blood cultures Pain control Resume home meds as appropriate Patient seen and examined. Case reviewed and discussed Agree with plan of care as discussed with me and documented in the resident note. Diamond Pryor MD Feb 15, 2017 08:35
[2017-02-15] MEDS: MULTIVITAMINS/MINERALS THERAPEUTIC TAB PO SCH (09:18)
[2017-02-15] MEDS: THIAMINE HCL 100 MG TAB PO SCH (09:19)
[2017-02-15] MEDS: FOLIC ACID 1 MG TAB PO SCH (09:19)
--- NOTE | 2017-02-15 09:40 | MB ---
cc: PARISH VILLAFANA DMD DATE OF CONSULTATION: 02/15/2017 REASON FOR CONSULTATION: Philtrum abscess. HISTORY OF PRESENT ILLNESS: This is a 51 year-old male who came to the ER earlier today. He reports that he has a history of a pimple below his nose, at the philtrum, right by the columella specifically and it was popped. Questionable ingrown hair was at the pimple he popped and then status post a couple of days it began to get swollen up. He reports he has a history of MRSA. He was seen in the ED here. He came back again because the pain is getting worse. He said that he had some abscess that did drain some pus, but now it stopped draining. It spontaneously drained. He is alert, oriented x3. He denies any fever, chills, nausea, vomiting, any shortness of breath, and difficulty breathing. PAST MEDICAL HISTORY: 1. Tuberculosis. 2. Hepatitis B and Hepatitis C. He reports he got it from group home but I don't know how. PAST SURGICAL HISTORY: 1. Thumb surgery. 2. Ankle surgery. 3. Tonsillectomy. MEDICATIONS: Denied ALLERGIES: Denied SOCIAL HISTORY: He reports past history of smoking tobacco. Social alcohol. Drugs, he does not use anymore. Past history of intravenous drug abuse. PHYSICAL EXAMINATION: Vital signs: Temperature 98.7, pulse is 58, respiration 18, blood pressure is 120/76 with oxygen saturation of 97%. Mild edema in the region of the upper lip, base of the nose, right by the region of the columella, medial aspect. It is tender to palpation, some erythema that is noted. It feels hard formed, well-circumscribed. The rest of the lip is normal. Intraorally, there is no swelling on the gingiva. No gross drainage at this point that I can see noted. It is located bilateral regions of the columella, triangulating to the region of the superior aspect of the upper lip towards the center. IMAGING STUDIES: CT scan of the facial bones shows a collection of small abscess, approximately 6 millimeters in the region with cellulitis around it. It is well-circumscribed. LABORATORY DATA: White count is 7.4 with an H&H of 13.3 and 38.2 with a platelet count of 189. IMPRESSION AND PLAN The patient is a 51 year-old male with a history of a pimple, right aspect of the columella, base of the nose, on the upper lip, popping it, past history of MRSA, now with failed attempt to get any purulence two days ago, now presents with more swelling and pain. At this point I plan to drain that at bedside if I can get any purulence to send it for culture. The patient reports that it drained by itself. The small little area of redness, recent blood, where it apparently could have drained on the right side of the columella. Will plan for culture. Infectious Disease consult pending. Benefits, risks, indication of the procedure in detail, options were discussed with the patient. The patient is aware of the risks of reinfection, and further procedures required. The patient has been advised not to pop any pimples. Parish Villafana DMD CREDIT FRONT OFFICE DEVELOPER/ZEV /8:46 AM /9:17 AM
--- NOTE | 2017-02-15 09:48 | MP ---
cc: PARISH VILLAFANA DMD DATE OF SURGERY: 02/15/2017 PREOPERATIVE DIAGNOSIS: Abscess / cellulitis upper lip, base of nose, near the columella, also popping pimple, possible MRSA. POSTOPERATIVE DIAGNOSIS Abscess / cellulitis upper lip, base of nose, near the columella, also popping pimple, possible MRSA. PROCEDURE: Incision and drainage, culture, region of the columella/upper lip/base of nose. ANESTHESIA 2% lidocaine with 1:100,000 epinephrine, approximately 3 cc. CULTURE: Took a swab of small little amount of drainage that came out. ESTIMATED BLOOD LOSS: Minimal INDICATIONS FOR PROCEDURE This is a 51-year-old male with past history of MRSA, who reports recently popping a pimple. He came in for antibiotics but apparently is still having more increased pain. The plan is to I&D, get more culture to get a definitive confirmation of MRSA. PROCEDURE IN DETAIL FOLLOWS: The region of the columella, the region of the upper lip and the nose was all prepped with ChloraPrep. 2% lidocaine with 1:100,000 epinephrine was injected around the I&D site on the upper lip and near the base of the nose. An 11 blade was used to make a stab incision and at the regions of the greatest area I could feel some questionable fluctuance but there was nothing there. I got a small little amount of drainage at that point. I took a little hemostat and dissected it and got a little amount of drainage, some blood that is noted. It is very thick and very hard, any residual pus the patient said is drained out, but I was able to get some small amount of drainage. I cultured out and irrigated the area with saline solution. We will await the labs. The patient is already on antibiotics, Indocin and vancomycin. Will await ID consult. Parish Villafana DMD WILDLIFE ECOLOGIST/ZEV /8:52 AM /9:39 AM
[2017-02-15] MEDS: AMPICILLIN-SULBACTAM INJ 1,500 MG in SODIUM CHLORIDE 0.9% INJ 100 ML IV SCH ×3 (10:57→19:39)
[2017-02-15 12:00] VITALS: BP 110/72; PULSE 46; RESP 14; TEMP 96.8; O2SAT 96
--- NOTE | 2017-02-15 14:02 | PD.CONS ---
History of Present Illness Service Infectious disease Consult Requested By Dr Pryor Reason for Consult Evaluate patient with facial cellulitis, failed outpatient treatment Primary Care Physician No Primary Care Physician Diagnoses: History of Present Illness Patient seen and examined. Records reviewed. Patient is a 51-year-old male, presented to the hospital on February 12 with 5 day history of having a pimple at the base of his nose close to the philtrum. It started getting worse with increasing redness, swelling and pain and he went to the emergency room on February 12, and was diagnosed to have cellulitis with a small superficial abscess seen on CT. Then IV Dalvance in the ED. He did not have any fever, and his WBC was normal. Patient was instructed to follow-up in 48 hours, and he did on February 14. Patient stated that it has not improved although it really did not get worse. He remains afebrile, and his WBC is normal. Oral maxillofacial surgeon has seen the patient, and did I and D of the abscess. Noted marked improvement on his facial swelling. Infectious disease consultation has been requested to evaluate the patient. Review of Systems Constitutional: DENIES: Fever, Chills, Night Sweats Eyes: DENIES: Eye pain Ears, nose, mouth, throat: DENIES: Nasal discharge, Oral lesions, Throat pain, Ear Pain Respiratory: DENIES: Cough, Shortness of breath Cardiovascular: DENIES: Chest pain, Syncope Gastrointestinal: DENIES: Abdominal pain, Diarrhea, Nausea, Vomiting, Difficulty Swallowing Genitourinary: DENIES: Dysuria Musculoskeletal: DENIES: Joint pain, Joint Swelling Integumentary: DENIES: Rash Neurologic: DENIES: Headache Psychiatric: DENIES: Hallucinations Past Family Social History Allergies: Coded Allergies: No Known Allergies (Verified , 02/15/17) Past Medical History History of TB Hep B & C Herniated disc Past Surgical History Tonsillectomy in 1992 Bilateral thumb surgery Left ankle surgery Right ear surgery Traumatic brain injury Active Ordered Medications Tylenol Unasyn Vasotec Folate acid Toradol MVI Zofran Oxycodone Jennifer-Colace Thiamine Vancomycin Ambien Family History Dad - throat [place] Social History Denies current smoking Denies chewing tobacco Infrequent alcohol Former IV drug user, last use 3 weeks ago. Physical Exam Vital Signs Vital Signs Date Time Temp Pulse Resp B/P (MAP) Pulse Ox O2 Delivery O2 Flow Rate FiO2 02/15/17 12:00 96.8 46 14 110/72 (85) 96 02/15/17 08:45 02/15/17 08:00 96.9 50 14 108/68 (81) 97 02/15/17 04:31 58 18 120/76 (91) 97 Room Air 02/15/17 02:25 98.7 65 15 124/81 (95) 96 Room Air Physical Exam GENERAL: Patient is a well-nourished, well-developed CM, awake and alert, not in respiratory distress. SKIN: Warm and dry. No generalized rash, no ecchymoses and no evidence of embolic lesions. HEAD: Atraumatic. Normocephalic. No temporal wasting, or tenderness. EYES: [place] conjunctiva. No petechia or hemorrhage. Pupils equal, round and reactive to light. Extraocular movements full and intact. No scleral icterus. No injection or drainage. EARS, NOSE AND THROAT: Nose with with some edema and induration at base, close to philtrum, some dried blood seen. No sinus tenderness. Mucous membranes pink and moist. No oral lesions noted. No exudate. No oral thrush. NECK: Trachea midline. Supple and not tender, no meningeal signs CARDIOVASCULAR: Regular rate and rhythm. No murmurs, rubs or gallops heard RESPIRATORY: Clear to auscultation. Breath sounds equal bilaterally. No rales , wheezing or rhonchi ABDOMEN: Soft, non-tender, nondistended. Bowel sounds present and normoactive. No guarding. No rebound. No organomegaly. EXTREMITIES: No clubbing, cyanosis, or edema.No joint effusion, has good ROM. No calf tenderness. Well perfused and warm. NEUROLOGICAL: Awake and alert. Cranial nerves grossly intact. Motor grossly within normal limits. PSYCHIATRIC: Normal affect, calm and cooperative. LINE: No evidence of infection Laboratory Laboratory Tests Test 02/15/17 03:23 02/15/17 10:48 White Blood Count 7.4 Red Blood Count 4.01 Hemoglobin 13.2 Hematocrit 38.2 Mean Corpuscular Volume 95.4 Mean Corpuscular Hemoglobin 32.8 Mean Corpuscular Hemoglobin Concent 34.4 Red Cell Distribution Width 12.3 Platelet Count 189 Mean Platelet Volume 7.8 Neutrophils (%) (Auto) 55.2 Lymphocytes (%) (Auto) 35.0 Monocytes (%) (Auto) 7.4 Eosinophils (%) (Auto) 1.8 Basophils (%) (Auto) 0.6 Neutrophils # (Auto) 4.1 Lymphocytes # (Auto) 2.6 Monocytes # (Auto) 0.5 Eosinophils # (Auto) 0.1 Basophils # (Auto) 0.0 CBC Comment DIFF FINAL Differential Comment Erythrocyte Sedimentation Rate 38 Blood Urea Nitrogen 7 Creatinine 0.87 Random Glucose 84 Total Protein 7.7 Albumin 3.4 Calcium Level 8.5 Alkaline Phosphatase 62 Aspartate Amino Transf (AST/SGOT) 12 Alanine Aminotransferase (ALT/SGPT) 15 Total Bilirubin 0.5 Sodium Level 139 Potassium Level 3.6 Chloride Level 105 Carbon Dioxide Level 26.3 Anion Gap 8 Estimat Glomerular Filtration Rate 93 Lactic Acid Level 1.3 Phosphorus Level 3.7 Magnesium Level 2.1 Date/Time Source Procedure Growth Status 02/15/17 03:25 Blood Peripheral Aerobic Blood Culture Pending Received 02/15/17 03:25 Blood Peripheral Anaerobic Blood Culture Pending Received 02/15/17 08:09 Wound Lip Gram Stain Pending Received 02/15/17 08:09 Wound Lip Wound Culture Pending Received Result Diagram: 02/15/17 0323 02/15/17 0323 Assessment and Plan Assessment and Plan IMPRESSION Abscess/Cellulitis upper lip/base of nose, S/P I and D - received Dalvance 02/12 - likely not necessarily a failure but just needs I and D Hx Hep B and C Known IVDU RECOMMENDATION Stop IV vanco - no added benefit because he still has Dalvance on board Continue Unasyn for now Add Levaquin Follow C/S and adjust Abx Monitor progress I will follow along with you Thank you for this consultation Discussed Condition With Explained plan to the patient Ora Rojas MD Feb 15, 2017 14:02
[2017-02-15] MEDS: KETOROLAC TROMETHAMINE 30 MG/ML (IVP) VIAL IVP PRN ×2 (15:18→21:27)
[2017-02-15] MEDS: LEVOFLOXACIN 750 MG TAB PO SCH (15:18)
[2017-02-15 16:00] VITALS: BP 95/51; PULSE 66; RESP 16; TEMP 95.8; O2SAT 98
[2017-02-15 20:00] VITALS: BP 105/65; PULSE 55; RESP 18; TEMP 97; O2SAT 99
[2017-02-15] MEDS ORDERED: VANCOMYCIN 1,500 MG/NS 500 ML IV SCH ×2 (20:00)
[2017-02-16] VITALS (7 sets, daily range): BP systolic 105–112; BP diastolic 59–67; PULSE 52–64; RESP 14–18; TEMP 95.4–97.7; O2SAT 96–99
[2017-02-16] MEDS: AMPICILLIN-SULBACTAM INJ 1,500 MG in SODIUM CHLORIDE 0.9% INJ 100 ML IV SCH ×4 (01:25→21:24)
[2017-02-16] MEDS: KETOROLAC TROMETHAMINE 30 MG/ML (IVP) VIAL IVP PRN ×2 (05:55→21:29)
[2017-02-16 06:49] LABS: AUTOMATED NEUTROPHIL # 2.1 TH/MM3 (1.8-7.7); BASOPHIL % 0.7 % (0.0-2.0); EOSINOPHIL # 0.2 TH/MM3 (0-0.4); EOSINOPHIL % 3.7 % (0.0-4.0); HEMATOCRIT 34.7 % (39.0-51.0); HEMO FLAGS DIFF FINAL; LYMPH % 43.1 % (9.0-44.0); LYMPHOCYTE # 2.1 TH/MM3 (1.0-4.8); MEAN CELL VOLUME 96.3 FL (80.0-100.0); MEAN CORPUSCULAR HEMOGLOBIN 32.8 PG (27.0-34.0); MONO % 9.8 % (0.0-8.0); NEUT % 42.7 % (16.0-70.0); PLATELET COUNT 144 TH/MM3 (150-450); RED CELL DISTRIBUTION WIDTH 12.6 % (11.6-17.2)
[2017-02-16 07:17] LABS: BICARBONATE 26.5 MEQ/L (21.0-32.0); POTASSIUM 3.6 MEQ/L (3.5-5.1)
[2017-02-16] MEDS: SODIUM CHLOR 0.9% 1000 ML INJ 1,000 ML IV SCH ×3 (07:33→21:25)
[2017-02-16] MEDS: MULTIVITAMINS/MINERALS THERAPEUTIC TAB PO SCH (07:52)
[2017-02-16] MEDS: THIAMINE HCL 100 MG TAB PO SCH (07:52)
[2017-02-16] MEDS: FOLIC ACID 1 MG TAB PO SCH (07:52)
[2017-02-16] MEDS: LEVOFLOXACIN 750 MG TAB PO SCH (07:52)
--- NOTE | 2017-02-16 09:16 | HHI.FPPN ---
Subjective Remarks Patient seen and examined this morning. No acute events over night. Patient reports decreased swelling in his face. Notes "some pain" in his face which is controlled with medication. Some nasal drainage and mild cough which he attributes to the nasal drainage. No nausea, vomiting, fever, chills, changes in bowel or bladder habits. (Earnest Cavazos MD R1) Objective Vitals Vital Signs Date Time Temp Pulse Resp B/P (MAP) Pulse Ox O2 Delivery O2 Flow Rate FiO2 02/16/17 07:46 99 02/16/17 00:00 96.8 53 17 106/67 (80) 99 02/15/17 20:00 97.0 55 18 105/65 (78) 99 02/15/17 16:00 95.8 66 16 95/51 (66) 98 02/15/17 12:00 96.8 46 14 110/72 (85) 96 I/O 02/15/17 02/15/17 02/15/17 02/16/17 02/16/17 02/16/17 07:00 15:00 23:00 07:00 15:00 23:00 Intake Total 1104 ml 515 ml 480 ml 1440 ml Balance 1104 ml 515 ml 480 ml 1440 ml Intake Oral 480 ml 240 ml IV Total 1104 ml 515 ml 1200 ml # Voids 1 2 # Bowel Movements 0 (Earnest Cavazos MD R1) Result Diagram: 02/16/17 0547 02/16/17 0547 Objective Remarks GENERAL: This is a well-developed patient, in no apparent distress. SKIN: Multiple insect bites on BLE, warm and dry HEAD: Atraumatic. Normocephalic. No temporal or scalp tenderness. EYES: Pupils equal round and reactive. Extraocular motions intact. No scleral icterus. No injection or drainage. ENT: mild erythema on the lower border of the right nare. Mildly tender, no drainage. Nasal septum and philtrum without apparent lesion. Poor dentition. Throat without erythema, tonsillar hypertrophy or exudate. Uvula midline. Airway patent. NECK: Trachea midline. No JVD or lymphadenopathy. Supple, nontender, no meningeal signs. CARDIOVASCULAR: Normal rate and rhythm without murmurs, gallops, or rubs. 2+ pedal pulses RESPIRATORY: Clear to auscultation. Breath sounds equal bilaterally. No wheezes , rales, or rhonchi. GASTROINTESTINAL: Abdomen soft, non-tender, nondistended No guarding. MUSCULOSKELETAL: Extremities without clubbing, cyanosis, or edema. Scabbed blisters underneath his feet NEUROLOGICAL: Awake and alert. Motor and sensory grossly within normal limits. Normal speech. Procedures I&D of abcess at base of right nare with culture 02/15/17 (Earnest Cavazos MD R1) A/P Assessment and Plan 51 y/o male presents with skin abscess below his right nostril after failing outpatient therapy. Admitted to the hospital for management with IV antibiotics. Oral maxillofacial surgery and ID on board. (Earnest Cavazos MD R1) Attending Attestation Patient seen and examined. Case reviewed and discussed Agree with plan of care as discussed with me and documented in the resident note. (Diamond Pryor MD) Problem List: (1) Facial abscess ICD Codes: L02.01 - Cutaneous abscess of face Status: Acute Plan: CT facial bones with IV contrast on 02/12/17 showed a 13 x 12 mm fluid collection compatible with a small abscess, approximately 6 mm beneath the skin. No fracture or acute bone destruction demonstrated, no periosteal reaction seen. Failed outpatient therapy with Dalvance. Patient has a history of MRSA cellulitis in 2016 that was susceptible to vancomycin, clindamycin, and Bactrim. Patient received a dose of clindamycin 600 mg IV in the ED. Currently improving. * ID on board, appreciate recommendations * Vancomycin stopped due to recent Dalvance administration * Currently on unasyn 1500 mg IV Q6 (02/15-) and Levaquin 750 PO daily (12/15-) * Wound swab no growth x1 day * OMF on board, s/p I&D of abscess * Wound culture s/p I&D no WBC/Organisms seen on gram stain (2) Hepatitis B ICD Codes: B19.10 - Unspecified viral hepatitis B without hepatic coma Status: Chronic Plan: -Chronic history of Hep B -Will check viral load, currently pending (3) Hepatitis C ICD Codes: B19.20 - Unspecified viral hepatitis C without hepatic coma Status: Chronic Plan: -Chronic history of Hep C -Will check viral load, currently pending (4) FEN/DVT PPX/GI PPX/Nursing Orders Plan: Fluids: NS @ 140 mls/hr IV Electrolytes: Will monitor and replace as needed Nutrition:Regular adult diet DVT Prophylaxis: Bilateral SCDs GI Prophylaxis: None currently Constipation prophylaxis: Pericolace 1 tab PO BID -Vitals Q4h -Monitor I's and O's -Activity OOB ad kelly -Case management consult to assist with discharge disposition Disposition: Pending improvement in facial cellulitis (Earnest Cavazos MD R1) Problem Qualifiers (1) Hepatitis B: Qualified Codes: B18.1 - Chronic viral hepatitis B without delta-agent (2) Hepatitis C: Qualified Codes: B18.2 - Chronic viral hepatitis C Earnest Cavazos MD R1 Feb 16, 2017 09:16 Diamond Pryor MD Feb 18, 2017 14:12
[2017-02-16] MEDS ORDERED: NALOXONE HCL 0.4 MG/ML AMP IV PUSH PRN (13:45)
--- NOTE | 2017-02-16 16:47 | HHI.PR ---
Subjective Remarks POD 1 s/p I & D upper/lip /nasal/columella abscess pt seen and examined aao x3 nad reports feeling much better - denies any pain tolerating po well Objective Vital Signs Date Time Temp Pulse Resp B/P (MAP) Pulse Ox O2 Delivery O2 Flow Rate FiO2 02/16/17 16:34 97 02/16/17 08:00 95.4 58 14 105/62 (76) 96 02/16/17 07:46 99 02/16/17 00:00 96.8 53 17 106/67 (80) 99 02/15/17 20:00 97.0 55 18 105/65 (78) 99 I/O 02/15/17 02/15/17 02/15/17 02/16/17 02/16/17 02/16/17 07:00 15:00 23:00 07:00 15:00 23:00 Intake Total 1104 ml 515 ml 480 ml 1440 ml 1100 ml Balance 1104 ml 515 ml 480 ml 1440 ml 1100 ml Intake Oral 480 ml 240 ml IV Total 1104 ml 515 ml 1200 ml 1100 ml # Voids 1 2 # Bowel Movements 0 Result Diagram: 02/16/17 0547 02/16/17 0547 Objective Remarks significant decrease in nasal floor/upper lip edema/erythema decreased tenderness no palpable collection noted, firm hemostatic i/d sites stable, decrease in wbc S. aureus Assessment and Plan Assessment and Plan POD 1 s/p I & D upper/lip /nasal/columella abscess pt improving, doing much better ID consult noted - S.Aureus, decrease in wbc, afebrile continue medial management no surgical intervention at this point OMS signing off - recall as required Saurav Villafana DMD Feb 16, 2017 16:47
--- NOTE | 2017-02-16 17:38 | PD.WCN.NOT ---
Wound Consult Description: Consult for Wound Management fo right nostril and right foot per Eko R2 Communicated with: Yadira,SONJA Patient Oral Maxillofacial Surgeon Recommendation: Leave dry/scabbed wounds open to air Additional Information: Patient seen with Dr Villafana on for wound evaluation of nostril that was edematous and without erythema or drainage. 2 tiny scabs that appear as pin points were dry and open to air and left that way. Right plantar 3rd digit is noted with a dry fissure without drainage that was left open to air. Kristine Snow [facility] Feb 16, 2017 17:38
[2017-02-16] MEDS ORDERED: PHARMACY ORDERED LAB ONE (19:45)
[2017-02-17 00:32] VITALS: BP 104/50; PULSE 57; RESP 18; TEMP 96.5; O2SAT 93
[2017-02-17] MEDS: SODIUM CHLOR 0.9% 1000 ML INJ 1,000 ML IV SCH ×3 (00:37→14:23)
[2017-02-17] MEDS: AMPICILLIN-SULBACTAM INJ 1,500 MG in SODIUM CHLORIDE 0.9% INJ 100 ML IV SCH ×2 (02:16→08:36)
[2017-02-17 06:55] LABS: AUTOMATED NEUTROPHIL # 2.4 TH/MM3 (1.8-7.7); BASOPHIL % 0.7 % (0.0-2.0); EOSINOPHIL # 0.2 TH/MM3 (0-0.4); HEMO FLAGS DIFF FINAL; LYMPH % 41.1 % (9.0-44.0); LYMPHOCYTE # 2.1 TH/MM3 (1.0-4.8); MEAN CELL VOLUME 96.9 FL (80.0-100.0); MEAN CORPUSCULAR HEMOGLOBIN 33.5 PG (27.0-34.0); MEAN CORPUSCULAR HGB CONC 34.5 % (32.0-36.0); MONO % 7.7 % (0.0-8.0); NEUT % 46.5 % (16.0-70.0); PLATELET COUNT 129 TH/MM3 (150-450); RED BLOOD COUNT 3.51 MIL/MM3 (4.50-5.90); RED CELL DISTRIBUTION WIDTH 12.4 % (11.6-17.2); WHITE BLOOD COUNT 5.1 TH/MM3 (4.0-11.0)
[2017-02-17 08:00] VITALS: BP 112/61; PULSE 59; RESP 17; TEMP 97.3; O2SAT 95
[2017-02-17] MEDS: MULTIVITAMINS/MINERALS THERAPEUTIC TAB PO SCH (08:35)
[2017-02-17] MEDS: FOLIC ACID 1 MG TAB PO SCH (08:35)
[2017-02-17] MEDS: LEVOFLOXACIN 750 MG TAB PO SCH (08:35)
[2017-02-17] MEDS: THIAMINE HCL 100 MG TAB PO SCH (08:35)
[2017-02-17] MEDS: KETOROLAC TROMETHAMINE 30 MG/ML (IVP) VIAL IVP PRN ×2 (08:36→15:43)
--- NOTE | 2017-02-17 11:01 | HHI.FPPN ---
Subjective Remarks Patient seen and examined this morning. No acute events over night. Patient reports decreased swelling in his face. Notes "some pain" in his face which yesterday afternoon had increased and required additional pain medication. It is currently controlled with medication. Some nasal drainage and mild cough which he attributes to the nasal drainage. No nausea, vomiting, fever, chills, chest pain, difficulty breathing, changes in bowel or bladder habits. (Earnest Cavazos MD R1) Objective Vitals Vital Signs Date Time Temp Pulse Resp B/P (MAP) Pulse Ox O2 Delivery O2 Flow Rate FiO2 02/17/17 08:00 97.3 59 17 112/61 (78) 95 02/17/17 00:32 96.5 57 18 104/50 (68) 93 02/16/17 20:00 96.5 64 18 108/59 (75) 97 02/16/17 16:34 97 02/16/17 16:00 97.7 54 18 112/59 (76) 96 02/16/17 12:00 96.5 52 16 105/66 (79) 99 I/O 02/16/17 02/16/17 02/16/17 02/17/17 02/17/17 02/17/17 07:00 15:00 23:00 07:00 15:00 23:00 Intake Total 1440 ml 1200 ml 2500 ml 1100 ml 100 ml Balance 1440 ml 1200 ml 2500 ml 1100 ml 100 ml Intake Oral 240 ml 1400 ml IV Total 1200 ml 1200 ml 1100 ml 1100 ml 100 ml # Voids 2 5 0 # Bowel Movements 1 0 (Earnest Cavazos MD R1) Result Diagram: 02/17/17 0408 02/16/17 0547 Objective Remarks GENERAL: This is a well-developed patient, in no apparent distress. SKIN: Multiple insect bites on BLE, warm and dry HEAD: Atraumatic. Normocephalic. EYES: Pupils equal round and reactive. Extraocular motions intact. No scleral icterus. No injection or drainage. ENT: mild erythema on the lower border of the right nare, improved from yesterday. Mildly tender, no drainage. Nasal septum and philtrum without apparent lesion. Poor dentition. Throat without erythema, tonsillar hypertrophy or exudate. Uvula midline. Airway patent. NECK: Trachea midline. No JVD or lymphadenopathy. Supple, nontender, no meningeal signs. CARDIOVASCULAR: Normal rate and rhythm without murmurs, gallops, or rubs. 2+ pedal pulses RESPIRATORY: Clear to auscultation. Breath sounds equal bilaterally. No wheezes , rales, or rhonchi. GASTROINTESTINAL: Abdomen soft, non-tender, nondistended No guarding. MUSCULOSKELETAL: Extremities without clubbing, cyanosis, or edema. Scabbed blisters underneath his feet NEUROLOGICAL: Awake and alert. Motor and sensory grossly within normal limits. Normal speech. Procedures I&D of abcess at base of right nare with culture 02/15/17 (Earnest Cavazos MD R1) A/P Assessment and Plan 51 y/o male presents with skin abscess below his right nostril after failing outpatient therapy. Admitted to the hospital for management with IV antibiotics. Oral maxillofacial surgery s/p I&D, signed off. ID on board. (Earnest Cavazos MD R1) Attending Attestation Patient seen and examined. Case reviewed and discussed Agree with plan of care as discussed with me and documented in the resident note. Correction to above: Patient did not fail Dalvance therapy. Patient had abscess which needed drainage. (Diamond Pryor MD) Problem List: (1) Facial abscess ICD Codes: L02.01 - Cutaneous abscess of face Status: Acute Plan: CT facial bones with IV contrast on 02/12/17 showed a 13 x 12 mm fluid collection compatible with a small abscess, approximately 6 mm beneath the skin. No fracture or acute bone destruction demonstrated, no periosteal reaction seen. Failed outpatient therapy with Dalvance. Patient has a history of MRSA cellulitis in 2016 that was susceptible to vancomycin, clindamycin, and Bactrim. Patient received a dose of clindamycin 600 mg IV in the ED. Currently improving. * ID on board, appreciate recommendations * Vancomycin stopped 02/15 due to recent Dalvance administration * Currently on unasyn 1500 mg IV Q6 (02/15-) and Levaquin 750 PO daily (12/15-) * Wound swab no growth * OMF on board, s/p I&D of abscess, signed off * Wound culture s/p I&D no WBC/Organisms seen on gram stain. Staph Aureus grown , sensitive to current regimen. (2) Hepatitis B ICD Codes: B19.10 - Unspecified viral hepatitis B without hepatic coma Status: Chronic Plan: -Chronic history of Hep B -Will check viral load, currently pending (3) Hepatitis C ICD Codes: B19.20 - Unspecified viral hepatitis C without hepatic coma Status: Chronic Plan: -Chronic history of Hep C -Will check viral load, currently pending (4) FEN/DVT PPX/GI PPX/Nursing Orders Plan: Fluids: NS @ 140 mls/hr IV Electrolytes: Will monitor and replace as needed Nutrition:Regular adult diet DVT Prophylaxis: Bilateral SCDs GI Prophylaxis: None currently Constipation prophylaxis: Pericolace 1 tab PO BID Disposition: Pending improvement in facial cellulitis and antibiotics optimization (Earnest Cavazos MD R1) Problem Qualifiers (1) Hepatitis B: Qualified Codes: B18.1 - Chronic viral hepatitis B without delta-agent (2) Hepatitis C: Qualified Codes: B18.2 - Chronic viral hepatitis C Earnest Cavazos MD R1 Feb 17, 2017 11:01 Diamond Pryor MD Feb 18, 2017 14:12
[2017-02-17 12:00] VITALS: BP 104/59; PULSE 64; RESP 16; TEMP 96.6; O2SAT 98
--- NOTE | 2017-02-17 13:38 | HHI.IDPN ---
Subjective Subjective Remarks Patient is a 51-year-old male, presented to the hospital on February 12 with 5 day history of having a pimple at the base of his nose close to the philtrum. It started getting worse with increasing redness, swelling and pain and he went to the emergency room on February 12, and was diagnosed to have cellulitis with a small superficial abscess seen on CT. Then IV Dalvance in the ED. He did not have any fever, and his WBC was normal. Patient was instructed to follow-up in 48 hours, and he did on February 14. Patient stated that it has not improved although it really did not get worse. He remains afebrile, and his WBC is normal. Oral maxillofacial surgeon has seen the patient, and did I and D of the abscess. Noted marked improvement on his facial swelling. Infectious disease consultation has been requested to evaluate the patient. Notes reviewed Temps ok No fever Swelling better C/S MSSA Antibiotics Unasyn Levaquin Lines PIV Past Medical History History of TB Hep B & C Herniated disc Past Surgical History Tonsillectomy in 1992 Bilateral thumb surgery Left ankle surgery Right ear surgery Traumatic brain injury Allergies: Coded Allergies: No Known Allergies (Verified , 02/15/17) Objective . Vital Signs Date Time Temp Pulse Resp B/P (MAP) Pulse Ox O2 Delivery O2 Flow Rate FiO2 02/17/17 12:00 96.6 64 16 104/59 (74) 98 02/17/17 08:00 97.3 59 17 112/61 (78) 95 02/17/17 00:32 96.5 57 18 104/50 (68) 93 02/16/17 20:00 96.5 64 18 108/59 (75) 97 02/16/17 16:34 97 02/16/17 16:00 97.7 54 18 112/59 (76) 96 02/17/17 02/17/17 02/18/17 15:00 23:00 07:00 Intake Total 100 ml Balance 100 ml IV Total 100 ml . Laboratory Tests Test 02/16/17 05:47 02/17/17 04:08 White Blood Count 5.0 TH/MM3 5.1 TH/MM3 Red Blood Count 3.60 MIL/MM3 3.51 MIL/MM3 Hemoglobin 11.8 GM/DL 11.8 GM/DL Hematocrit 34.7 % 34.0 % Mean Corpuscular Volume 96.3 FL 96.9 FL Mean Corpuscular Hemoglobin 32.8 PG 33.5 PG Mean Corpuscular Hemoglobin Concent 34.0 % 34.5 % Red Cell Distribution Width 12.6 % 12.4 % Platelet Count 144 TH/MM3 129 TH/MM3 Mean Platelet Volume 8.3 FL 8.6 FL Neutrophils (%) (Auto) 42.7 % 46.5 % Lymphocytes (%) (Auto) 43.1 % 41.1 % Monocytes (%) (Auto) 9.8 % 7.7 % Eosinophils (%) (Auto) 3.7 % 4.0 % Basophils (%) (Auto) 0.7 % 0.7 % Neutrophils # (Auto) 2.1 TH/MM3 2.4 TH/MM3 Lymphocytes # (Auto) 2.1 TH/MM3 2.1 TH/MM3 Monocytes # (Auto) 0.5 TH/MM3 0.4 TH/MM3 Eosinophils # (Auto) 0.2 TH/MM3 0.2 TH/MM3 Basophils # (Auto) 0.0 TH/MM3 0.0 TH/MM3 CBC Comment DIFF FINAL DIFF FINAL Differential Comment Laboratory Tests Test 02/16/17 05:47 Blood Urea Nitrogen 9 MG/DL Creatinine 0.86 MG/DL Random Glucose 98 MG/DL Calcium Level 8.1 MG/DL Sodium Level 141 MEQ/L Potassium Level 3.6 MEQ/L Chloride Level 109 MEQ/L Carbon Dioxide Level 26.5 MEQ/L Anion Gap 6 MEQ/L Estimat Glomerular Filtration Rate 94 ML/MIN Microbiology Date/Time Source Procedure Growth Status 02/15/17 03:25 Blood Peripheral Aerobic Blood Culture - Preliminary NO GROWTH IN 2 DAYS Resulted 02/15/17 03:25 Blood Peripheral Anaerobic Blood Culture - Preliminary NO GROWTH IN 2 DAYS Resulted 02/15/17 03:20 Blood Peripheral Aerobic Blood Culture - Preliminary NO GROWTH IN 2 DAYS Resulted 02/15/17 03:20 Blood Peripheral Anaerobic Blood Culture - Preliminary NO GROWTH IN 2 DAYS Resulted 02/15/17 08:09 Wound Lip Gram Stain - Final Complete 02/15/17 08:09 Wound Culture - Final Staphylococcus Aureus Complete Physical Exam GENERAL: awake and alert, not in respiratory distress. SKIN: Warm and dry. No generalized rash, no ecchymoses and no evidence of embolic lesions. HEAD: Atraumatic. Normocephalic. No temporal wasting, or tenderness. EYES: Humble conjunctiva. No petechia or hemorrhage. No scleral icterus. No injection or drainage. EARS, NOSE AND THROAT: Nose with with some edema and induration at base, close to philtrum, some dried blood seen, looks better. NECK: Trachea midline. Supple and not tender, no meningeal signs CARDIOVASCULAR: Regular rate and rhythm. No murmurs, rubs or gallops heard RESPIRATORY: Clear to auscultation. Breath sounds equal bilaterally. No rales , wheezing or rhonchi ABDOMEN: Soft, non-tender, nondistended. Bowel sounds present and normoactive. No guarding. No rebound. No organomegaly. EXTREMITIES: No clubbing, cyanosis, or edema.No joint effusion, has good ROM. No calf tenderness. Well perfused and warm. NEUROLOGICAL: Awake and alert. Cranial nerves grossly intact. Motor grossly within normal limits. PSYCHIATRIC: Normal affect, calm and cooperative. LINE: No evidence of infection Assessment & Plan Remarks IMPRESSION Abscess/Cellulitis upper lip/base of nose, S/P I and D - received Dalvance 02/12 - likely not necessarily a failure but just needs I and D - C/S MSSA Hx Hep B and C Known IVDU RECOMMENDATION OK to D/C home on Keflex x 10-14 days Explained plan to patient Ora Rojas MD Feb 17, 2017 13:38
[2017-02-17] MEDS ORDERED: CEPHALEXIN MONOHYDRATE 500 MG CAP PO SCH (14:00)
[2017-02-17] MEDS ORDERED: CEPH-460 PO ×2 (14:40→14:42)
--- NOTE | 2017-02-17 14:40 | HHI.DCPOC ---
Discharge Care Plan Diagnosis: (1) Facial abscess (2) Hepatitis B (3) Hepatitis C Goals to Promote Your Health * To prevent worsening of your condition and complications * To maintain your health at the optimal level Directions to Meet Your Goals Take your medications as prescribed Follow your dietary instruction Follow activity as directed Keep your appointments as scheduled Take your immunizations and boosters as scheduled If your symptoms worsen call your PCP, if no PCP go to Urgent Care Center or Emergency Room Smoking is Dangerous to Your Health. Avoid second hand smoke Call the 24-hour hour crisis hotline for domestic abuse at Saige Rizzo MD R2 Feb 17, 2017 14:40
[2017-02-17] MEDS ORDERED: OXYC-395 PO (14:43)
[2017-02-17] MEDS ORDERED: KETO10 PO (14:45)
[2017-02-18 11:51] LABS: HCV RNA PCR IU/ML LESS THAN 15 IU/mL (0-14); HCV RNA PCR LOGIU/ML LESS THAN 1.18 (0-1.18)
[2017-02-19 03:51] LABS: HEP B DNA R1 161 IU/mL (0-19); HEP B DNA R2 2.21 (<1.30)
--- NOTE | 2017-02-22 10:41 | HHI.DS ---
Discharge Summary Admission Date Feb 15, 2017 at 05:45 Discharge Date: Feb 17, 2017 Admitting Diagnosis facial abscess failed outpatient therapy (1) Facial abscess Diagnosis: Principal Plan: CT facial bones with IV contrast on 02/12/17 showed a 13 x 12 mm fluid collection compatible with a small abscess, approximately 6 mm beneath the skin. No fracture or acute bone destruction demonstrated, no periosteal reaction seen. Failed outpatient therapy with Dalvance. Patient has a history of MRSA cellulitis in 2016 that was susceptible to vancomycin, clindamycin, and Bactrim. Patient received a dose of clindamycin 600 mg IV in the ED. Currently improving. * ID on board, appreciate recommendations * Vancomycin stopped 02/15 due to recent Dalvance administration * Currently on unasyn 1500 mg IV Q6 (02/15-) and Levaquin 750 PO daily (12/15-) * Wound swab no growth * OMF on board, s/p I&D of abscess, signed off * Wound culture s/p I&D no WBC/Organisms seen on gram stain. Staph Aureus grown , sensitive to current regimen. ICD Codes: L02.01 - Cutaneous abscess of face Status: Acute (2) Hepatitis B Diagnosis: Secondary Plan: -Chronic history of Hep B -Will check viral load, currently pending ICD Codes: B19.10 - Unspecified viral hepatitis B without hepatic coma Status: Chronic (3) Hepatitis C Diagnosis: Secondary Plan: -Chronic history of Hep C -Will check viral load, currently pending ICD Codes: B19.20 - Unspecified viral hepatitis C without hepatic coma Status: Chronic Consultants Infectious disease, wound care, case management, oral maxillofacial surgery Procedures I&D of abcess at base of right nare with culture 02/15/17 Brief History Patient is a 51-year-old male that presents to the [facility] ED with a chief complaint of a facial abscess that failed outpatient therapy. Patient was last seen in the ED 2 days ago where the facial abscess was confirmed by CT and he received one dose of Dalvance and was told to return to the ED in 2 days. Patient states that the pain has not improved and is actually worse than previous. He describes the pain as 7 out of 10. The abscess has been draining a lot of purulent yellow-valente material with some blood. He has not had any fevers within the past 2 days. Significant Findings Microbiology results positive MRSA wound culture 02/15 from the wound, sensitive to everything tested except for erythromycin PE at Discharge GENERAL: This is a well-developed patient, in no apparent distress. SKIN: Multiple insect bites on BLE, warm and dry HEAD: Atraumatic. Normocephalic. EYES: Pupils equal round and reactive. Extraocular motions intact. No scleral icterus. No injection or drainage. ENT: mild erythema on the lower border of the right nare, improved from yesterday. Mildly tender, no drainage. Nasal septum and philtrum without apparent lesion. Poor dentition. Throat without erythema, tonsillar hypertrophy or exudate. Uvula midline. Airway patent. NECK: Trachea midline. No JVD or lymphadenopathy. Supple, nontender, no meningeal signs. CARDIOVASCULAR: Normal rate and rhythm without murmurs, gallops, or rubs. 2+ pedal pulses RESPIRATORY: Clear to auscultation. Breath sounds equal bilaterally. No wheezes , rales, or rhonchi. GASTROINTESTINAL: Abdomen soft, non-tender, nondistended No guarding. MUSCULOSKELETAL: Extremities without clubbing, cyanosis, or edema. Scabbed blisters underneath his feet NEUROLOGICAL: Awake and alert. Motor and sensory grossly within normal limits. Normal speech. Hospital Course 51-year-old male who was admitted for source control for facial abscess. He presented with an maintained normal vital signs his hospital stay but was admitted due to need for source control (I&D). He noted that the pain in the face under the nose and within the nose had significantly worsened which prompted him to come to the ED. Labs including blood culture were collected, showing no growth. Wound culture was also collected and it was positive for MRSA. He did receive Dalvance on 02/12/17 which notably should continue to work over the course of 2 weeks. I&D was performed the day of admission and patient noted significant improvement in his symptoms the next morning. Pain management was optimized and patient was discharged on day 2 of stay with Keflex, 10 days per ID recommendations. Pain management was optimized to include Toradol and oxycodone in the hospital, this was continued for approximately one week prescriptions at discharge. He was counseled to follow up with his PCP within one week. He was discharged in stable condition. Pt Condition on Discharge: Stable Discharge Disposition: Discharge Home Discharge Instructions DIET: Follow Instructions for: As Tolerated, No Restrictions Activities you can perform: Regular-No Restrictions Follow up Referrals: PCP Follow-up - 1 Week New Medications: Cephalexin (Keflex) 500 Mg Cap 500 MG PO Q6H for Infection, #40 CAP 0 Refills Ketorolac (Ketorolac) 10 Mg Tab 10 MG PO Q6HR PRN for PAIN, #12 TAB 0 Refills Oxycodone (Oxycodone) 10 Mg Tab 10 MG PO Q4-6H PRN for PAIN SCALE 6 TO 10, #28 TAB Saige Rizzo MD R2 Feb 22, 2017 10:41
== END 2017-02-17 17:16 | disposition home or self-care (01) | DRG 158 ==
LOC: NEPE 02:21 → NEDA 04:41 → OBSVTOIN 05:45 → N07A 08:32
PROVIDERS: ADMIT Family Medicine; ATTEND Family Medicine
PROC: 0C9 Mouth and Throat, Drainage (ICD-10-PCS; principal; 2017-02-15)
PROC: 099K0ZX Drainage of Nasal Mucosa and Soft Tissue, Open Approach, Diagnostic (ICD-10-PCS; 2017-02-15)
DX: K13.0 Diseases of lips (principal); B18.1 Chronic viral hepatitis B without delta-agent; B18.2 Chronic viral hepatitis C; J34.0 Abscess, furuncle and carbuncle of nose; Z86.14 Personal history of Methicillin resistant Staphylococcus aureus infection; Z86.11 Personal history of tuberculosis; Z87.891 Personal history of nicotine dependence; Z87.820 Personal history of traumatic brain injury; Z80.0 Family history of malignant neoplasm of digestive organs; Z59.0 Homelessness; S80.862A Insect bite (nonvenomous), left lower leg, initial encounter; S80.861A Insect bite (nonvenomous), right lower leg, initial encounter; W57.XXXA Bitten or stung by nonvenomous insect and other nonvenomous arthropods, initial encounter; Y93.9 Activity, unspecified; A49.01 Methicillin susceptible Staphylococcus aureus infection, unspecified site
CPT/HCPCS: 80048; 80053; 83605; 83735; 84100; 85025; 85652; 86403; 87040; 87070; 87147; 87186; 87205; 87517; 87522; 96374; 96375; J0295; J1885; J2270; J2405; J3370; J7030; J7040